=== PATIENT | male | born 1980 | race African-American/Black ===

== ENCOUNTER 2017-05-10 02:21 | Emergency (ER) | payer SELFPAY ==
[~2017-05-10] VITALS: Ht 188 cm; Wt 95.0 kg
[2017-05-10 02:27] VITALS: BP 159/97
== END 2017-05-10 02:53 | disposition left against medical advice (07) ==
LOC: ER 02:21
DX: R41.82 Altered mental status, unspecified (principal); G93.40 Encephalopathy, unspecified; F17.200 Nicotine dependence, unspecified, uncomplicated; Z53.21 Procedure and treatment not carried out due to patient leaving prior to being seen by health care provider